=== PATIENT | male | born 1970 | race Caucasian/White ===

== ENCOUNTER 2020-05-25 09:00 | Emergency (ER) | payer OTHER ==
[~2020-05-25] VITALS: Ht 182.9 cm; Wt 79.5 kg
[2020-05-25 09:08] VITALS: Ht 182.9 cm; Wt 79.5 kg
[2020-05-25] MEDS ORDERED: BUPROPION XL300 MG (09:10)
[2020-05-25] MEDS ORDERED: LAMICTAL100 MG (09:11)
[2020-05-25 09:36] LABS: BASOPHILS 0.1 % (0-2); EOSINOPHILS 1.2 % (0-7); HEMATOCRIT 43.2 % (42.0-54.0); HEMOGLOBIN 15.2 g/dL (13.5-17.5); IMMATURE GRANULOCYTES 0.4 % (0-5); LYMPHOCYTES 36.4 % (15-50); MCHC 35.2 g/dL (31.0-37.0); MCV 93.7 fL (80.0-100.0); MEAN PLATELET VOLUME 8.8 fL (7.4-10.4); MONOCYTES 11.1 % (2-11); NEUTROPHILS 50.8 % (40-80); PLATELET COUNT 246 10x3/uL (130-400); RBC 4.61 10x6/uL (4.20-6.10); RDW 12.7 % (11.5-14.5)
[2020-05-25 09:43] LABS: CALC OSMOLALITY 277 mosm/kg (275-300); CALCIUM 8.8 mg/dL (8.5-10.1); CARBON DIOXIDE 26.2 mmol/L (21.0-32.0); CHLORIDE - SERUM 102 mmol/L (98-107); CREATININE - SERUM 1.4 mg/dL (0.6-1.3); GLUCOSE 110 mg/dL (74-106); POTASSIUM - SERUM 3.7 mmol/L (3.5-5.1); SODIUM 138 mmol/L (136-145); UREA NITROGEN 16 mg/dL (7-18); eGFR NON AFRICAN AMERICAN 56 mL/min (90-120)
[2020-05-25 09:52] LABS: ALBUMIN 4.2 g/dL (3.4-5.0); ALKALINE PHOSPHATASE 75 U/L (30-120); ALT (SGPT) 40 U/L (10-68); AMYLASE - SERUM 74 U/L (25-115); BILIRUBIN - TOTAL 0.19 mg/dL (0.2-1.3); LIPASE 168 U/L (73-393); PROTEIN - SERUM 8.1 g/dL (6.4-8.2); TROPONIN-I < 0.017 ng/mL (0.000-0.060)
[2020-05-25 10:07] LABS: BILIRUBIN NEGATIVE (NEGATIVE); KETONE NEGATIVE (NEGATIVE); NITRITE NEGATIVE (NEGATIVE); UROBILINOGEN NORMAL (NORMAL)
[2020-05-25 12:33] VITALS: BP 111/75
== END 2020-05-25 12:33 | disposition home or self-care (01) ==
LOC: D.ER 09:00
PROVIDERS: Family Medicine
DX: R10.9 Unspecified abdominal pain (principal); R53.1 Weakness

== ENCOUNTER 2020-07-07 08:19 | Emergency (ER) | payer OTHER ==
[~2020-07-07] VITALS: Ht 182.9 cm; Wt 81.8 kg
[~2020-07-07 08:19] MED LIST: BUPROPION XL300 MG; LAMICTAL100 MG
[2020-07-07 08:45] VITALS: Ht 182.9 cm; Wt 81.8 kg
[2020-07-07] MEDS ORDERED: HYDROCODON-ACE1 EAC7 PO (09:49)
[2020-07-07 10:15] VITALS: BP 118/72
== END 2020-07-07 10:15 | disposition home or self-care (01) ==
LOC: D.ER 08:19
DX: S93.401A Sprain of unspecified ligament of right ankle, initial encounter (principal); V89.9XXA Person injured in unspecified vehicle accident, initial encounter; Y93.9 Activity, unspecified; Y92.9 Unspecified place or not applicable; J44.9 Chronic obstructive pulmonary disease, unspecified; Z72.0 Tobacco use